=== PATIENT | male | born 1950 | race African-American/Black ===

== ENCOUNTER 2018-04-21 05:35 | Inpatient (IN) ==
[2018-04-21] MEDS ORDERED: ROPIVACAINE 0.5% 30 ML VIAL ONE (05:57)
[2018-04-21] MEDS ORDERED: MIDAZOLAM 2 MG/2 ML VIAL ONE ×2 (05:57→09:42)
[2018-04-21] MEDS ORDERED: VANCOMYCIN INJ 1,000 MG in SODIUM CHLORIDE 0.9% 250 ML IV ONE ×2 (06:00→15:34)
[2018-04-21] MEDS ORDERED: ceFAZolin 1,000 MG in SYRINGE 1 EACH IV ONE (06:00)
[2018-04-21] MEDS ORDERED: ceFAZolin 1,000 MG VIAL ONE (06:07)
[2018-04-21] MEDS ORDERED: VANCOMYCIN 1,000 MG VIAL ONE (06:07)
[2018-04-21] MEDS ORDERED: ACETAMINOPHEN 500 MG TABLET PO ONE (06:09)
[2018-04-21] MEDS ORDERED: GABAPENTIN 400 MG CAPSULE PO ONE (06:09)
[2018-04-21] MEDS ORDERED: LACTATED RINGERS 1,000 ML IV SCH ×2 (06:30→09:00)
[2018-04-21] MEDS ORDERED: BACITRACIN OINT 0.9 GM PACK TOP ONE (06:48)
[2018-04-21] MEDS ORDERED: BUPIVACAINE SPINAL 0.75% 2 ML AMP SPINAL ONE (07:23)
[2018-04-21] MEDS ORDERED: MAGNESIUM HYDROXIDE SUSP 30 ML UDCUP PO PRN (07:33)
[2018-04-21] MEDS ORDERED: MORPHINE 4 MG/1 ML VIAL IV PRN ×2 (07:33)
[2018-04-21] MEDS ORDERED: ONDANSETRON 4 MG/2 ML VIAL IV PRN ×2 (07:33→08:47)
[2018-04-21] MEDS ORDERED: oxyCODONE IR 5 MG TABLET PO PRN ×2 (07:33)
[2018-04-21] MEDS ORDERED: TRANEXAMIC ACID 1,000 MG/10 ML VIAL ONE (08:13)
[2018-04-21] MEDS ORDERED: NALOXONE 0.4 MG/ML VIAL IV PRN (08:47)
[2018-04-21] MEDS ORDERED: HYDROmorphone 2 MG/1 ML VIAL IV PRN (08:47)
[2018-04-21 09:19] LABS: Apearance,Urine CLEAR (Clear); Bilirubin,Urine Negative (Negative); Blood, Urine Small mg/dL (Negative); Glucose,Urine (UA) Negative (Negative); Ketones,Urine Negative (Negative); Mucus,Urine Occasional /LPF (Occasional); Nitrite,Urine Negative (Negative); Protein,Urine Negative; RBC,Urine 38 /HPF (0-4); Urine Color Yellow (Yellow); Urine Urobilinogen < 2.0 EU/DL (0.2-1.0); WBC,Urine 1 /HPF (0-6)
[2018-04-21] MEDS ORDERED: PHENYLEPHRINE 10 MG/1 ML VIAL IV ONE (09:42)
[2018-04-21] MEDS ORDERED: LACTATED RINGERS 1,000 ML IV ONE (09:43)
[2018-04-21] MEDS ORDERED: SODIUM CHLORIDE 0.9% 100 ML IV ONE (09:43)
[2018-04-21] MEDS ORDERED: PROPOFOL 500 MG/50 ML BOTTLE IV ONE (09:43)
[2018-04-21] MEDS ORDERED: PHENYLEPHRINE 1 MG/10 ML SYRINGE IV ONE (09:43)
[2018-04-21] MEDS: KETOROLAC 30 MG/1 ML VIAL IV SCH ×3 (13:07→20:59)
[2018-04-21] MEDS: ACETAMINOPHEN 500 MG TABLET PO SCH ×3 (13:08→23:00)
[2018-04-21] MEDS: LACTATED RINGERS 1,000 ML IV SCH ×2 (13:18→16:43)
[2018-04-21] MEDS: DOCUSATE SODIUM 100 MG CAPSULE PO SCH ×2 (18:05→20:59)
[2018-04-21] MEDS: ceFAZolin 1,000 MG in SYRINGE 1 EACH IV SCH (18:45)
[2018-04-21] MEDS: GABAPENTIN 300 MG CAPSULE PO SCH (20:59)
[2018-04-22] MEDS: KETOROLAC 30 MG/1 ML VIAL IV SCH (03:05)
[2018-04-22] MEDS: ceFAZolin 1,000 MG in SYRINGE 1 EACH IV SCH (03:05)
[2018-04-22] MEDS: FONDAPARINUX 2.5 MG/0.5 ML SYRINGE SUBCUT SCH (03:05)
[2018-04-22] MEDS: LACTATED RINGERS 1,000 ML IV SCH (03:08)
[2018-04-22] MEDS ORDERED: ceFAZolin 1,000 MG in SYRINGE 1 EACH IV SCH (03:15)
[2018-04-22 05:59] LABS: Basophils % 0.3 % (0.0-0.8); Eosinophils # 0.2 10*3/uL (0.0-0.87); Eosinophils % 2.6 % (0.00-10.9); Hematocrit 31.8 VOL% (42.0-52.0); Hemoglobin 10.1 GM/DL (14.0-18.0); Immature Granulocytes % 0.6 %; Immature Granulocytes Absolute 0.05 #; Lymphocytes # 1.5 10*3/uL (1.4-4.0); Lymphocytes % 16.9 % (21.2-54.2); Mean Corpuscular HGB Conc 31.8 GM/DL (32-36); Mean Corpuscular Hemoglobin 25 PG (27-34); Mean Platelet Volume 9.8 FL (9.6-12.0); Monocytes # 1.2 10*3/uL (0.11-0.8); Monocytes % 13.4 % (1.7-12.7); NRBC # 0.03 10*3/uL; Neutrophils # 5.8 10*3/uL (1.4-7.4); Neutrophils % 66.2 % (38.7-73.9); Platelet Count 221 T/CUMM (130-400); Red Blood Count 4.13 MC/CUMM (3.8-5.5); Red Cell Distribution Width 12.9 % (9.3-17.3); White Blood Count 8.7 T/CUMM (4-12)
[2018-04-22] MEDS: ACETAMINOPHEN 500 MG TABLET PO SCH (06:20)
[2018-04-22 06:29] LABS: Calcium 8.4 MG/DL (8.5-10.1); Osmolality,Calculated 281.3 MOS/KG (273-304); Potassium 4.3 MMOL/L (3.5-5.1)
[2018-04-22] MEDS ORDERED: ACETAMINOPHEN 325 MG TABLET PO PRN (07:34)
[2018-04-22] MEDS: DOCUSATE SODIUM 100 MG CAPSULE PO SCH ×2 (09:13→20:05)
[2018-04-22] MEDS: VERAPAMIL SR 240 MG TABLET PO SCH (09:13)
[2018-04-22] MEDS: CHLORTHALIDONE 25 MG TABLET PO SCH (09:13)
[2018-04-22] MEDS ORDERED: KETOROLAC 30 MG/1 ML VIAL IV SCH (09:30)
[2018-04-22] MEDS: CELECOXIB 200 MG CAPSULE PO SCH (13:44)
[2018-04-22] MEDS: GABAPENTIN 300 MG CAPSULE PO SCH (20:05)
[2018-04-23] MEDS: FONDAPARINUX 2.5 MG/0.5 ML SYRINGE SUBCUT SCH (01:11)
[2018-04-23 06:41] LABS: Basophils % 0.2 % (0.0-0.8); Eosinophils # 0.3 10*3/uL (0.0-0.87); Hematocrit 32.8 VOL% (42.0-52.0); Hemoglobin 10.3 GM/DL (14.0-18.0); Immature Granulocytes % 0.8 %; Immature Granulocytes Absolute 0.08 #; Lymphocytes # 1.6 10*3/uL (1.4-4.0); Lymphocytes % 16.6 % (21.2-54.2); Mean Corpuscular HGB Conc 31.4 GM/DL (32-36); Mean Corpuscular Hemoglobin 24 PG (27-34); Mean Corpuscular Volume 77.5 FL (87-102); Mean Platelet Volume 9.9 FL (9.6-12.0); Monocytes # 1.1 10*3/uL (0.11-0.8); Monocytes % 10.9 % (1.7-12.7); Neutrophils # 6.6 10*3/uL (1.4-7.4); Neutrophils % 68.5 % (38.7-73.9); Platelet Count 212 T/CUMM (130-400); Red Blood Count 4.23 MC/CUMM (3.8-5.5); White Blood Count 9.7 T/CUMM (4-12)
[2018-04-23 08:13] VITALS: BP 129/71
[2018-04-23] MEDS: DOCUSATE SODIUM 100 MG CAPSULE PO SCH (08:48)
[2018-04-23] MEDS: CHLORTHALIDONE 25 MG TABLET PO SCH (08:48)
[2018-04-23] MEDS: VERAPAMIL SR 240 MG TABLET PO SCH (08:48)
[2018-04-23] MEDS: CELECOXIB 200 MG CAPSULE PO SCH (08:48)
== END 2018-04-23 11:35 | disposition home health service (06) | DRG 470 ==
LOC: N.OR 05:35 → N.SDSINP 05:38 → N.3E 07:33
PROVIDERS: ADMIT Orthopaedic Surgery; ATTEND Orthopaedic Surgery